=== PATIENT | female | born 1990 | race Caucasian/White ===

== ENCOUNTER 2016-12-27 23:31 | Emergency (ER) | payer OTHER ==
[~2016-12-27] VITALS: Ht 170.2 cm; Wt 74.8 kg
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
[~2016-12-27 23:31] MED LIST: BENADRYL25 MG PO; FLAGYL PO; METRONIDAZOLE PO; PREDNISONE PO
== END 2016-12-28 03:00 | disposition home or self-care (01) ==
LOC: CED 23:31 → CFTX 23:31 → CED 23:59
DX: S93.402A Sprain of unspecified ligament of left ankle, initial encounter (principal); S20.219A Contusion of unspecified front wall of thorax, initial encounter; S50.01XA Contusion of right elbow, initial encounter; F17.200 Nicotine dependence, unspecified, uncomplicated; V43.52XA Car driver injured in collision with other type car in traffic accident, initial encounter
CPT/HCPCS: 71101; 73080; 73610; 84703; 99284